=== PATIENT | female | born 1960 | race Caucasian/White ===

== ENCOUNTER 2021-03-21 11:18 | Emergency (ER) | payer MEDICAID ==
[~2021-03-21] VITALS: Ht 149.9 cm; Wt 86.4 kg
[~2021-03-21 11:18] MED LIST: CYCL-145 PO; HYDR-3972 PO; OMEP-50 PO
[2021-03-21] MEDS ORDERED: ketorolac tromethamine 15mg/ml inj. IM ONE (12:20)
[2021-03-21] MEDS ORDERED: iohexol 350MG/ML 100ml bottle IV ONE (12:49)
[2021-03-21 13:12] LABS: BASOPHILS % (AUTO) 0.6 % (0-1); EOSINOPHILS # (AUTO) 0.1 X10'3 (0-0.9); EOSINOPHILS % (AUTO) 1.2 % (0-6); HEMATOCRIT 34.5 % (35.0-45.0); HEMOGLOBIN 11.3 g/dl (12.0-16.0); LYMPHOCYTES # (AUTO) 1.8 X10'3 (1.1-4.8); LYMPHOCYTES % (AUTO) 23.7 % (21-51); MEAN CORPUSCULAR HEMOGLOBIN 28.2 PG (27.0-31.0); MEAN CORPUSCULAR HGB CONC 32.8 g/dL (33.0-36.5); MEAN CORPUSCULAR VOLUME 85.9 FL (78-98); MONOCYTES # (AUTO) 0.4 X10'3 (0-0.9); MONOCYTES % (AUTO) 5.8 % (2-12); NEUTROPHILS # (AUTO) 5.2 X10'3 (1.8-7.7); NEUTROPHILS % (AUTO) 68.7 % (42-75); PLATELET COUNT 315 X10'3 (140-440); RED BLOOD COUNT 4.02 X10'6 (4.20-5.60); RED CELL DISTRIBUTION WIDTH 14.5 % (11.5-14.5); WHITE BLOOD COUNT 7.5 X10'3 (4.5-11.0)
[2021-03-21 13:22] LABS: PARTIAL THROMBOPLASTIN TIME 31 SECONDS (22-32)
[2021-03-21 13:25] LABS: ALANINE AMINOTRANSFERASE 32 U/L (12-78); ALBUMIN 3.6 G/DL (3.4-5.0); ALKALINE PHOSPHATASE 95 IU/L (46-116); ANION GAP 8 (8-16); ASPARTATE AMINO TRANSFERASE 23 U/L (10-37); BILIRUBIN,TOTAL 0.4 MG/DL (0.1-1.0); BLOOD UREA NITROGEN 7 MG/DL (7-18); BUN/CREATININE RATIO 9.6 (6.6-38.0); C-REACTIVE PROTEIN 0.46 MG/DL (0.0-0.5); CHLORIDE 99 MMOL/L (99-107); CREATININE 0.73 MG/DL (0.40-0.90); GLUCOSE 97 MG/DL (70-104); POTASSIUM 4.4 MMOL/L (3.5-5.1); SODIUM 135 MMOL/L (135-145); TOTAL CARBON DIOXIDE 28.5 MMOL/L (24-32); TOTAL PROTEIN 7.3 G/DL (6.4-8.2); eGFR 81 ML/MIN
[2021-03-21] MEDS ORDERED: diazepam 5mg tablet PO ONE (14:30)
--- NOTE | 2021-03-21 14:33 | NUR ---
to ct scan
[2021-03-21 16:18] VITALS: BP 136/80
== END 2021-03-21 16:20 | disposition home or self-care (01) ==
LOC: ER 11:18
DX: M79.604 Pain in right leg (principal); G89.29 Other chronic pain; Z87.442 Personal history of urinary calculi; Z87.440 Personal history of urinary (tract) infections; Z98.51 Tubal ligation status; Z72.89 Other problems related to lifestyle; Z98.890 Other specified postprocedural states; Z88.8 Allergy status to other drugs, medicaments and biological substances; Z88.5 Allergy status to narcotic agent; Z79.899 Other long term (current) drug therapy
CPT/HCPCS: 36415; 73701; 80053; 85025; 85610; 85651; 85730; 86140; 96372; 99285; J1885; Q9967

== ENCOUNTER 2022-01-21 08:45 | Day surgery (SDC) | payer MEDICAID ==
[2022-01-15 16:26] LABS: BASOPHILS % (AUTO) 0.6 % (0-1); EOSINOPHILS # (AUTO) 0.2 X10'3 (0-0.9); EOSINOPHILS % (AUTO) 2.5 % (0-6); LYMPHOCYTES # (AUTO) 2.4 X10'3 (1.1-4.8); LYMPHOCYTES % (AUTO) 34.5 % (21-51); MEAN CORPUSCULAR HEMOGLOBIN 27.8 PG (27.0-31.0); MEAN CORPUSCULAR HGB CONC 32.9 g/dL (33.0-36.5); MEAN CORPUSCULAR VOLUME 84.6 FL (78-98); MEAN PLATELET VOLUME 8.7 FL (7.4-10.4); MONOCYTES # (AUTO) 0.5 X10'3 (0-0.9); MONOCYTES % (AUTO) 6.9 % (2-12); NEUTROPHILS # (AUTO) 3.9 X10'3 (1.8-7.7); NEUTROPHILS % (AUTO) 55.5 % (42-75); PRE OP HEMATOCRIT 35.8 % (35.0-45.0); PRE OP HEMOGLOBIN 11.8 g/dL (12.0-16.0); PRE OP PLATELET COUNT 338 X10'3 (140-440); RED BLOOD COUNT 4.22 X10'6 (4.20-5.60); RED CELL DISTRIBUTION WIDTH 15.6 % (11.5-14.5)
[2022-01-15 16:38] LABS: CLARITY,URINE CLEAR (Clear); GLUCOSE, URINE NEGATIVE (Neg); KETONES,URINE NEGATIVE (Neg); LEUKOCYTE ESTERASE ,URINE NEGATIVE (Neg); NITRITES, URINE NEGATIVE (Neg); OCCULT BLOOD,URINE SMALL (Neg); PH,URINE 5.5 (4.8-8.0); PROTEIN,URINE NEGATIVE (Neg); UROBILINOGEN,URINE 0.2 E.U/dL (0.2-1.0)
[2022-01-15 16:48] LABS: ALANINE AMINOTRANSFERASE 23 U/L (12-78); ALBUMIN 3.8 G/DL (3.4-5.0); ALBUMIN/GLOBULIN RATIO 1.1 (1.1-1.5); ALKALINE PHOSPHATASE 101 IU/L (46-116); ANION GAP 10 (8-16); ASPARTATE AMINO TRANSFERASE 17 U/L (10-37); BILIRUBIN,TOTAL 0.3 MG/DL (0.1-1.0); BLOOD UREA NITROGEN 15 MG/DL (7-18); BUN/CREATININE RATIO 22.1 (6.6-38.0); CALCIUM 8.8 MG/DL (8.5-10.1); CHLORIDE 102 MMOL/L (99-107); CREATININE 0.68 MG/DL (0.40-0.90); GLUCOSE 109 MG/DL (70-104); POTASSIUM 4.1 MMOL/L (3.5-5.1); SODIUM 139 MMOL/L (135-145); TOTAL CARBON DIOXIDE 27.3 MMOL/L (24-32); TOTAL PROTEIN 7.4 G/DL (6.4-8.2); eGFR 88 ML/MIN
[2022-01-15 16:56] LABS: COLOR,URINE STRAW (Yellow); UA COLLECTION TYPE CLN CATCH MIDSTREAM
[2022-01-15 16:58] LABS: BACTERIA,URINE FEW /HPF (Neg); RBC,URINE 0-2 /HPF (0-2); SQUAMOUS EPITHELIAL CELL,UR FEW /LPF (FEW); WBC,URINE NONE SEEN /HPF (0-4)
[~2022-01-21] VITALS: Ht 149.9 cm; Wt 90.7 kg
[2022-01-21] VITALS (13 sets, daily range): BP systolic 144–170; BP diastolic 88–107
[~2022-01-21 08:45] MED LIST changes: +ALBU17AE26 INH; -CYCL-145 PO; +FLUT16SP26 BOTHNARES; +GABA300T25 PO; -HYDR-3972 PO; +IBUP-1986 PO; -OMEP-50 PO; +OMEP20CA16 PO; +ONDA-103 PO; +OXYB5TAB16 PO; +OXYC1TAB17 PO; +POTA8CAP20 PO; +albuterol 2.5 MG/3 ML nebule NEB ONE; +cefazolin/dext.iso 2gm/50ml IV ONE; +famotidine 20mg tablet PO ONE; +ringers solution, lacted 1,000 ML IV SCH
[2022-01-21] MEDS ORDERED: LIDOcaine 1% 30ml preserv. free vial ONE (10:31)
[2022-01-21] MEDS ORDERED: BUPIVAcaine 0.5% inj/PF 30 ML ONE ×2 (10:31→10:41)
[2022-01-21] MEDS ORDERED: BUPIVACAINE liposomal/PF 13.3 MG/ML vial IM ONE (10:41)
[2022-01-21] MEDS ORDERED: FENTANYL CITRATE/PF 50 MCG/1 ML VIAL ONE (10:55)
[2022-01-21] MEDS ORDERED: midazolam 1 mg/ML 2ml injection ONE (10:55)
[2022-01-21] MEDS ORDERED: propofol inj 20 ML IV ONE (11:49)
[2022-01-21] MEDS ORDERED: rocuronium 10mg/ml inj IV ONE (11:49)
[2022-01-21] MEDS ORDERED: LIDOcaine 2% (20mg/ml) 5ml vial ONE (11:49)
[2022-01-21] MEDS ORDERED: ondansetron/PF 4mg/2ml inj ONE (11:51)
[2022-01-21] MEDS ORDERED: dexamethasone sod phosphate 4mg/ml inj. ONE (11:51)
[2022-01-21] MEDS ORDERED: glycopyrrolate 0.2mg/ml inj ONE (11:51)
[2022-01-21] MEDS ORDERED: neostigmine methylsulfate 1 MG/ML 10ml vial ONE (11:51)
--- NOTE | 2022-01-21 12:10 | NUR ---
PT ARRIVED TO RECOVERY VIA [facility] ACCOMPANIED BY DR EVANS-ANESTHESIA REPORT GIVEN, PT WAKING UP, VSS, DENIES PAIN, ABD DSRG-CDI ,SCDS ON, PIV 20G TO LEFT HAND.
[2022-01-21] MEDS ORDERED: acetaminophen 1,000mg/100ml IV 100 ML IV ONE (12:25)
[2022-01-21] MEDS ORDERED: oxyCODONE/APAP 10/325mg tablet PO PRN ×2 (12:30)
[2022-01-21] MEDS ORDERED: labetalol 20mg/4ml (5mg/ml) syringe IV PRN (12:35)
[2022-01-21] MEDS ORDERED: acetaminophen 1,000mg/100ml IV 100 ML IV PRN (12:35)
[2022-01-21] MEDS ORDERED: ondansetron/PF 4mg/2ml inj IV PRN (12:35)
[2022-01-21] MEDS ORDERED: HYDROmorphone/PF 0.2 MG/ML SYRINGE IV PRN (12:35)
[2022-01-21] MEDS ORDERED: ringers solution, lacted 1,000 ML IV SCH (12:35)
[2022-01-21] MEDS: morphine 2 MG/ML inj. syringe IV PRN ×2 (12:55→13:05)
[2022-01-21] MEDS: HYDROmorphone/PF 0.2 MG/ML SYRINGE IV PRN ×2 (13:43→13:50)
--- NOTE | 2022-01-21 14:10 | NUR ---
PT UP AND DRESSED, VSS, ABD BINDER IN PLACE, TOLERATING FLUIDS, 1 PERCOCET GIVEN FOR PAIN AND RIDE TO [employer], PIV D/CD-CANULA INTACT, DRSG-CDI, DAUGHTER ON WAY TO [employer].
--- NOTE | 2022-01-21 14:30 | NUR ---
PT GIVEN D/C INSTRUCTIONS-ALL QUESTIONS ANSWERED, TAKEN VIA W/C TO [facility] CAR WITH ALL BELONGINGS
== END 2022-01-21 14:30 | disposition home or self-care (01) ==
LOC: PAS 08:45
PROVIDERS: ATTEND Surgery
DX: K43.0 Incisional hernia with obstruction, without gangrene (principal); G89.29 Other chronic pain; G62.9 Polyneuropathy, unspecified; M19.90 Unspecified osteoarthritis, unspecified site; F17.210 Nicotine dependence, cigarettes, uncomplicated; D64.9 Anemia, unspecified; E66.9 Obesity, unspecified; Z68.41 Body mass index [BMI] 40.0-44.9, adult; Z87.440 Personal history of urinary (tract) infections; Z98.51 Tubal ligation status; Z98.890 Other specified postprocedural states; Z20.822 Contact with and (suspected) exposure to COVID-19; Z79.899 Other long term (current) drug therapy; Z88.5 Allergy status to narcotic agent; Z88.8 Allergy status to other drugs, medicaments and biological substances; Z86.14 Personal history of Methicillin resistant Staphylococcus aureus infection; Z86.73 Personal history of transient ischemic attack (TIA), and cerebral infarction without residual deficits; Z82.49 Family history of ischemic heart disease and other diseases of the circulatory system; Z82.3 Family history of stroke; Z82.61 Family history of arthritis
CPT/HCPCS: 36415; 49655; 64488; 71046; 80053; 81001; 82948; 85025; 93005; C1781; C9290; J0131; J1100; J1170; J2250; J2270; J2405; J2704; J2710; J3010; J3490; J7030; J7120; S0020; S2900; U0003; U0005; Z7506; Z7508; Z7512; A4215; A4618

== ENCOUNTER 2022-01-27 21:45 | Inpatient (IN) | payer MEDICAID ==
[~2022-01-27] VITALS: Ht 149.9 cm; Wt 86.2 kg
[~2022-01-27 21:45] MED LIST changes: -albuterol 2.5 MG/3 ML nebule NEB ONE; -cefazolin/dext.iso 2gm/50ml IV ONE; -famotidine 20mg tablet PO ONE; -ringers solution, lacted 1,000 ML IV SCH
--- NOTE | 2022-01-28 00:38 | NUR ---
Received report from STEPAN Aguilar. PT STEPHANIE avalos from [facility].
[2022-01-28 01:29] VITALS: BP 160/102
[2022-01-28] MEDS ORDERED: magnesium 2GM in 50ml NS 50 ML IV PRN (01:30)
[2022-01-28] MEDS ORDERED: magnesium Cl slow-release 64mg tablet PO PRN (01:30)
[2022-01-28] MEDS ORDERED: ondansetron/PF 4mg/2ml inj IV PRN (01:30)
[2022-01-28] MEDS ORDERED: magnesium hydroxide 30ml (MOM) UD suspension PO PRN (01:30)
[2022-01-28] MEDS ORDERED: magnesium 4gm in 100ml NS 100 ML IV PRN (01:30)
[2022-01-28] MEDS ORDERED: potassium CL 10mEq/100ml bag 100 ML IV PRN (01:30)
[2022-01-28] MEDS ORDERED: acetaminophen 325mg tablet PO PRN (01:30)
[2022-01-28] MEDS ORDERED: mag hydrox/Alum hydrox/simeth 30ml oral suspension PO PRN (01:30)
[2022-01-28] MEDS ORDERED: potassium Cl 20 mEq SR tablet PO PRN ×2 (01:30)
[2022-01-28] MEDS: dextrose 5%-1/2 normal saline 1,000 ML IV SCH ×3 (02:10→21:30)
[2022-01-28] MEDS: morphine 2 MG/ML inj. syringe IV PRN ×5 (02:26→22:52)
[2022-01-28 06:00] VITALS: BP 161/98
[2022-01-28 06:49] LABS: POTASSIUM 3.6 MMOL/L (3.5-5.1)
--- NOTE | 2022-01-28 06:55 | NUR ---
While giving report to Elizabeth, RN was told patient pulled out NG tube. Went to assess placement. NG was still in nare Elizabeth, inbound telemarketer tube but could not auscultate air. Stat X-ray ordered to check placement.
--- NOTE | 2022-01-28 07:08 | NUR ---
Problems reprioritized. Patient report given, questions answered & plan of care reviewed with STEPAN Johnson.
[2022-01-28] MEDS: K and/or MAG REPLACEMENT MC SCH ×2 (08:00→19:33)
--- NOTE | 2022-01-28 08:47 | NUR ---
Page Sent PAGER ID: [phone] MESSAGE: [id number]- Patient Mari Mejia. has SBO, with NGT recent hernia repair. complaints of pain. has morphine 2 mg q4h, not time her for over 1hr. crying in pain. please adv. Elizabeth [phone]
[2022-01-28] MEDS: enoxaparin 40mg/0.4ml syringe SUBCUT SCH (09:22)
[2022-01-28] MEDS: docusate sod 100mg capsule PO SCH ×2 (09:22→20:24)
[2022-01-28] MEDS ORDERED: HYDROmorphone 1 mg/ml syringe IV ONE (09:30)
[2022-01-28 11:00] VITALS: BP 174/102
[2022-01-28] MEDS: hydrALAZINE 20mg/ml inj. IV SCH ×2 (14:14→20:24)
[2022-01-28 15:00] VITALS: BP 152/87
[2022-01-28 18:00] VITALS: BP 161/86
--- NOTE | 2022-01-28 19:30 | NUR ---
pt NG tube discontinued by MD & Placed on clear liquids.
[2022-01-28] MEDS ORDERED: zolpidem 5mg tablet PO ONE (20:00)
[2022-01-28] MEDS ORDERED: methylnaltrexone br 12mg/0.6ml inj***SubQ only SQ ONE (20:05)
[2022-01-28] MEDS ORDERED: magnesium hydroxide 30ml (MOM) UD suspension PO ONE (20:05)
[2022-01-28] MEDS: gabapentin 300mg capsule PO SCH (20:37)
[2022-01-28 22:00] VITALS: BP 141/93
[2022-01-29 02:00] VITALS: BP 128/95
[2022-01-29] MEDS: hydrALAZINE 20mg/ml inj. IV SCH ×3 (02:00→14:00)
[2022-01-29] MEDS ORDERED: LORazepam 2 mg/ml vial IV ONE (03:40)
[2022-01-29] MEDS: oxyCODONE/APAP 10/325mg tablet PO PRN ×2 (05:27→09:56)
[2022-01-29 06:00] VITALS: BP 139/73
--- NOTE | 2022-01-29 06:34 | NUR ---
Problems reprioritized. Patient report given, questions answered & plan of care reviewed with DAKOTA DUNCAN.
[2022-01-29 06:45] LABS: BASOPHILS % (AUTO) 0.4 % (0-1); EOSINOPHILS # (AUTO) 0.4 X10'3 (0-0.9); EOSINOPHILS % (AUTO) 4.5 % (0-6); HEMATOCRIT 33.6 % (35.0-45.0); HEMOGLOBIN 11.2 g/dl (12.0-16.0); LYMPHOCYTES # (AUTO) 1.6 X10'3 (1.1-4.8); LYMPHOCYTES % (AUTO) 18.2 % (21-51); MEAN CORPUSCULAR HGB CONC 33.4 g/dL (33.0-36.5); MEAN CORPUSCULAR VOLUME 83.8 FL (78-98); MEAN PLATELET VOLUME 8.6 FL (7.4-10.4); MONOCYTES # (AUTO) 0.7 X10'3 (0-0.9); MONOCYTES % (AUTO) 7.9 % (2-12); PLATELET COUNT 326 X10'3 (140-440); RED BLOOD COUNT 4.01 X10'6 (4.20-5.60); WHITE BLOOD COUNT 8.7 X10'3 (4.5-11.0)
[2022-01-29 07:05] LABS: ALANINE AMINOTRANSFERASE 14 U/L (12-78); ALKALINE PHOSPHATASE 74 IU/L (46-116); ANION GAP 9 (8-16); ASPARTATE AMINO TRANSFERASE 16 U/L (10-37); BILIRUBIN,TOTAL 0.4 MG/DL (0.1-1.0); CHLORIDE 104 MMOL/L (99-107); GLUCOSE 125 MG/DL (70-104); SODIUM 138 MMOL/L (135-145); TOTAL CARBON DIOXIDE 25.1 MMOL/L (24-32); TOTAL PROTEIN 6.8 G/DL (6.4-8.2)
[2022-01-29 07:11] LABS: ALBUMIN 3.1 G/DL (3.4-5.0); ALBUMIN/GLOBULIN RATIO 0.8 (1.1-1.5); BLOOD UREA NITROGEN 7 MG/DL (7-18); CALCIUM 8.7 MG/DL (8.5-10.1); CREATININE 0.54 MG/DL (0.40-0.90); MAGNESIUM 2.2 MG/DL (1.5-2.4); eGFR > 90 ML/MIN
[2022-01-29] MEDS: dextrose 5%-1/2 normal saline 1,000 ML IV SCH (07:30)
[2022-01-29] MEDS: K and/or MAG REPLACEMENT MC SCH (08:00)
[2022-01-29] MEDS ORDERED: pantoprazole 40MG/NS 100ML BAG 100 ML IV SCH (08:00)
[2022-01-29] MEDS: docusate sod 100mg capsule PO SCH (08:31)
[2022-01-29] MEDS: gabapentin 300mg capsule PO SCH ×2 (08:31→13:00)
[2022-01-29] MEDS: enoxaparin 40mg/0.4ml syringe SUBCUT SCH (08:32)
--- NOTE | 2022-01-29 09:57 | NUR ---
Resource RN Pain medication given for primary nurse Elizabeth YING. [facility]
[2022-01-29 11:00] VITALS: BP 123/75
[2022-01-29 14:00] VITALS: BP_SYST 123
== END 2022-01-29 16:09 | disposition home or self-care (01) | DRG 247 ==
LOC: UNDOADMIN 21:45 → PCU 3S 21:45
PROVIDERS: ADMIT Internal Medicine; ATTEND Internal Medicine
PROC: 0D9670Z Drainage of Stomach with Drainage Device, Via Natural or Artificial Opening (ICD-10-PCS; principal; 2022-01-28)
DX: K56.609 Unspecified intestinal obstruction, unspecified as to partial versus complete obstruction (principal); G62.9 Polyneuropathy, unspecified; K21.9 Gastro-esophageal reflux disease without esophagitis; G89.18 Other acute postprocedural pain; R32 Unspecified urinary incontinence; Z88.5 Allergy status to narcotic agent; Z79.899 Other long term (current) drug therapy
CPT/HCPCS: 36415; 74018; 80053; 83735; 84132; 85025; 87081; C9113; G0378; J0360; J1170; J1650; J2212; J2270; J7042